=== PATIENT | female | born 1980 | race Caucasian/White ===

== ENCOUNTER → 2022-01-24 07:03 | Outpatient (CLI) | payer BC, SELFPAY ==
--- NOTE | ~2022-01-24 | MR_ITS ---
EXAMINATION: MR hip RT wo con DATE: 01/24/2022 08:13 INDICATION: Right hip pain TECHNIQUE: Magnetic resonance imaging (MRI) of the right hip was performed without intravenous contr ast. Sequences included full-field axial PD-weighted FS FSE and T1-weighted FSE, coronal of the pelvi s with PD-weighted FS FSE, T2-weighted FSE and T1-weighted FSE, small field of view of the right hip with axial PD-weighted FS FSE, sagittal PD-weighted FS FSE, coronal PD-weighted FS FSE and coronal T2 weighted FSE. Additional radial T1-weighted FGR oriented orthogonal to the acetabular rim were obt ained for evaluation of the labrum. COMPARISON: None FINDINGS: Bones/labrum/cartilage: Alignment is normal. No fracture, avascular necrosis or pathologic marrow replacing process. Trochle a cartilage is normal at the right hip. Chondral labral delamination and partial-thickness tear at th e base of the 11:00-o'clock position of the superolateral right acetabular labrum. Similar tear sugge sted but not diagnostically evaluated at the contralateral left hip on the larger field of view image s. Fluid: Symmetric physiologic amount of fluid within both hip joints. Mild increased signal overlying the john ateral greater trochanters consistent with minimal bilateral trochanteric bursitis. Very small amount of likely physiologic free fluid in the cul-de-sac. Soft tissues: Normal and symmetric muscle bulk and signal in the pelvis and visualized proximal thighs. Mild tendin opathy without discrete tear at the distal right gluteus minimus tendon. The iliopsoas, remaining glu teal and proximal hamstring tendons are normal. A few subcentimeter T2 hyperintense bilateral ovarian cysts/follicles. There is wall thickening along the sigmoid colon suspicious for a distal colitis. L imited evaluation of visceral organs of the pelvis is otherwise unremarkable. No pathologically enla rged pelvic/inguinal lymphadenopathy. IMPRESSION: 1. Tear at the superolateral right acetabular labrum with suggestion of similar tear at the contralat eral left acetabular labrum on the larger field of view images. 2. Minimal bilateral trochanteric bursitis with mild tendinopathy without discrete tear at the distal right gluteus minimus tendon. 3. Wall thickening along the sigmoid colon suspicious for a distal colitis which could be infectious, inflammatory or less likely ischemic in etiology. Correlate with clinical history. Reviewed, dictated and finalized at location A. IMPRESSION: 1. Tear at the superolateral right acetabular labrum with suggestion of similar tear at the contralateral left acetabular labrum on the larger field of view i mages. 2. Minimal bilateral trochanteric bursitis with mild tendinopathy without discr ete tear at the distal right gluteus minimus tendon. 3. Wall thickening along the sigmoid colon suspicious for a distal colitis whic h could be infectious, inflammatory or less likely ischemic in etiology. Correl ate with clinical history.
--- NOTE | ~2022-01-24 | MR_ITS ---
EXAMINATION: MR knee RT wo con DATE: 01/24/2022 08:15 INDICATION: Chronic right knee pain TECHNIQUE: Magnetic resonance imaging (MRI) of the right knee was performed without intravenous contr ast. Sequences included coronal PD-weighted FSE, coronal PD-weighted FS FSE, sagittal T2-weighted FS E, sagittal PD-weighted FS FSE and axial PD weighted fat saturated FSE. COMPARISON: None. FINDINGS: Medial compartment: Medial meniscus is normal. Partial-thickness chondral ulceration and fissuring involving greater than 50% the cartilage thickness but without degenerative subchondral changes along the anterior weightbe aring medial femoral condyle. Cartilage along the central to posterior weightbearing medial femoral c ondyle and medial tibial plateau appear relatively preserved. Lateral compartment: Lateral meniscus is normal. Deep chondral fissuring without degenerative subchondral changes extendin g across the lateral tibial plateau. A severe partial thickness chondral fissuring at the anterior we ightbearing lateral femoral condyle. Patellofemoral compartment: Partial-thickness chondral ulceration and deep fissuring at the patellar apical ridge and lateral fac et, the latter with small focus of increased signal and likely developing subarticular cystlike vazquez e. Additional partial-thickness chondral ulceration and fissuring without degenerative subchondral ch anges at the caudal aspect of the trochlear groove and medial trochlea. Ligaments and tendons: Anterior and posterior cruciate ligaments are normal. Mild thickening and increased signal at the ant erior aspect of the proximal medial collateral ligament without surrounding edema consistent with mil d scarring related to chronic sprain. The fibular collateral ligament complexes normal. The extensor mechanism is normal. The visualized medial and lateral hamstring tendons as well as the iliotibial ba nd are normal. Fluid: Physiologic amount of fluid in the joint space. No loose osteochondral bodies identified. Osseous/other: Normal marrow signal aside from the previously noted small focus of increased signal in the subarticu lar bone at the lateral patellar facet. No fracture or pathologic marrow replacing process. IMPRESSION: 1. 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 Reviewed, dictated and finalized at location A. IMPRESSION: 1. Mild tricompartmental osteoarthritis with small focus of high-grade chondrom alacia at the lateral patellar facet and regions of more widespread moderate gr kelly chondromalacia in all 3 compartments.
== END ==
PROVIDERS: PCP Physician Assistant; Visit Provider Orthopaedic Surgery
DX: M25.551 Pain in right hip (principal); G89.29 Other chronic pain; M17.11 Unilateral primary osteoarthritis, right knee; M94.261 Chondromalacia, right knee; S73.191A Other sprain of right hip, initial encounter; M71.551 Other bursitis, not elsewhere classified, right hip; M76.01 Gluteal tendinitis, right hip; R93.3 Abnormal findings on diagnostic imaging of other parts of digestive tract
CPT/HCPCS: 73721